=== PATIENT | female | born 1985 | race Caucasian/White ===

== ENCOUNTER 2020-12-20 20:50 | Emergency (ER) | payer SELFPAY ==
[2020-12-20] MEDS ORDERED: Ondansetron ODT 4 MG TAB ONE (21:12)
[2020-12-20] MEDS ORDERED: Morphine 2 MG/ML VIAL ONE (21:12)
== END 2020-12-20 21:20 | disposition home or self-care (01) ==
LOC: BURERS 20:50
DX: M54.5 Low back pain (principal)
CPT/HCPCS: 96372; 99283; J2270; Q0162